=== PATIENT | male | born 1940 | race Asian ===

== ENCOUNTER 2025-03-31 19:43 | Emergency (ER) | payer MEDICARE, OTHER ==
[~2025-03-31] VITALS: Ht 167.6 cm; Wt 78.5 kg
[2025-03-31 20:22] VITALS: BP 113/59; TEMP 98; O2SAT 100
== END 2025-03-31 21:43 ==
LOC: ER 19:53
DX: T82.838A Hemorrhage due to vascular prosthetic devices, implants and grafts, initial encounter (principal); Z88.2 Allergy status to sulfonamides; Z99.2 Dependence on renal dialysis; Y92.89 Other specified places as the place of occurrence of the external cause